=== PATIENT | male | born 1950 | race Two or more races ===

== ENCOUNTER 2019-05-17 13:41 | Emergency (ER) | payer OTHER ==
[~2019-05-17] VITALS: Ht 177.8 cm; Wt 77.1 kg
[2019-05-17 13:50] VITALS: BP 131/88
--- NOTE | 2019-05-17 14:34 | NUR ---
Patient discharged IN [facility]USTODY in stable condition. Written and verbal after care instructions given. Patient verbalizes understanding of instruction.
--- NOTE | 2019-05-17 14:34 | NUR ---
Juliana jeffries in [facility] - 05/17/19 at 1434 by MALA Patient discharged to home in stable condition. Written and verbal after care instructions given. Patient verbalizes understanding of instruction.
== END 2019-05-17 14:35 | disposition home or self-care (01) ==
LOC: ER 13:44
DX: M54.30 Sciatica, unspecified side (principal); Z59.0 Homelessness